=== PATIENT | male | born 1995 | race African-American/Black ===

== ENCOUNTER 2018-04-27 16:33 | Emergency (ER) | payer SELFPAY ==
[~2018-04-27] VITALS: Ht 193 cm; Wt 82.0 kg
[2018-04-27] MEDS ORDERED: SODIUM CHLORIDE 0.9% 1,000 ML IV ONE (17:06)
[2018-04-27] MEDS ORDERED: LORAZEPAM 2MG/ML CPJ IV STA (17:06)
[2018-04-27 18:19] LABS: BASOPHILS % 0.8 % (0.0-2.0); EOSINOPHILS % 6.7 % (0.0-5.0); HEMATOCRIT. 45.5 % (42.0-52.0); HEMOGLOBIN. 15.1 g/dL (14.0-18.0); LYMPHOCYTES % 28.6 % (20.0-50.0); MEAN CORPUSCULAR HEMOGLOBIN 29.7 pg (28.0-32.0); MEAN CORPUSCULAR VOLUME 89.1 fL (80.0-94.0); MONOCYTES % 12.2 % (2.0-8.0); NEUTROPHILS % 51.7 % (40.0-76.0); PLATELET 189 x1000/uL (130-400)
[2018-04-27 18:28] LABS: CHLORIDE 103 mEq/L (98-107)
[2018-04-27 18:33] LABS: ETHANOL BLOOD < 10 mg/dL
[2018-04-27 19:21] LABS: CLARITY URINE CLEAR (CLEAR); COLOR URINE YELLOW (YELLOW); KETONES URINE NEGATIVE (NEGATIVE); LEUKOCYTE ESTERASE URINE NEGATIVE (NEGATIVE); NITRITE URINE NEGATIVE (NEGATIVE); OCCULT BLOOD URINE NEGATIVE (NEGATIVE); PH URINE 7.5 (4.5-8.0); PROTEIN URINE NEGATIVE (NEGATIVE); SPECIFIC GRAVITY URINE 1.015 (1.005-1.030); UROBILINOGEN URINE 0.2 E.U./dL (0.2-1.0)
[2018-04-27 19:30] LABS: *AMPHETAMINES SCREEN URINE NEGATIVE (NEGATIVE); *BARBITURATES SCREEN URINE NEGATIVE (NEGATIVE); *BENZODIAZEPINES SCREEN URINE NEGATIVE (NEGATIVE); *COCAINE SCREEN URINE NEGATIVE (NEGATIVE)
[2018-04-27 19:31] LABS: CANNABINOID URINE SCREEN PRESUMTIVE POSITIVE (NEGATIVE); METHADONE URINE SCREEN NEGATIVE (NEGATIVE); OPIATES URINE SCREEN NEGATIVE (NEGATIVE); PHENCYCLIDINE URINE SCREEN NEGATIVE (NEGATIVE)
[2018-04-27 21:18] VITALS: BP 118/63
== END 2018-04-27 22:01 | disposition home or self-care (01) ==
LOC: ER 16:33
DX: F12.120 Cannabis abuse with intoxication, uncomplicated (principal)
CPT/HCPCS: 36415; 80053; 80305; 80307; 80329; 81003; 85025; 93005; 96374; 99285; G0482; J2060; J7030